=== PATIENT | male | born 1955 ===

== ENCOUNTER 2017-12-24 09:38 | Day surgery (SDC) | payer OTHER ==
[2014-07-27 08:43] VITALS: BMI 28.6
[2017-12-24 10:17] VITALS: TEMP 97.9
[2017-12-24] MEDS ORDERED: Midazolam 2 MG/2 ML VIAL ONE (12:33)
[2017-12-24] MEDS ORDERED: Propofol 10 mg/ml Inj (20 ML) ONE (12:33)
[2017-12-24] MEDS ORDERED: Rocuronium 10 mg/ml (5 ml) ONE (12:35)
[2017-12-24] MEDS ORDERED: Lidocaine/Epinephrine 1% 1:100000 10 ML IJ ONE (12:48)
[2017-12-24] MEDS ORDERED: Vancomycin 1 gm/D5W 200 ml 1 GM/200 ML BAG IVPB ONE (12:48)
[2017-12-24] MEDS: Bupivacaine 0.25% 20 ML INJ IJ ONE ×2 (13:36→13:53)
[2017-12-24] MEDS ORDERED: Neostigmine Methylsulfate 3mg/3ml Syringe IV ONE (15:25)
[2017-12-24] MEDS ORDERED: HYDROmorphone 0.5 mg/0.5 ml ISec IVP PRN (15:58)
[2017-12-24] MEDS ORDERED: Oxycodone/Acetaminophen 5/325 mg Tab PO PRN (16:00)
--- NOTE | 2017-12-24 16:03 | PCM.SURG1 ---
Surgeon's Initial Post Op Note - Surgeon's Notes Surgeon: Dr. Victor Value Stream Leader: Keisha Foote Type of Anesthesia: General Endo, Block Regional, Local Pre-Operative Diagnosis: b/l inguinal hernia Operative Findings: large inguinal hernia defect bilateral Post-Operative Diagnosis: Same Operation Performed: robotic bilateral inguinal hernia repair with mesh Specimen/Specimens Removed: fat tissues Estimated Blood Loss: EBL {In ML}: 20 Blood Products Given: N/A Drains Used: No Drains Post-Op Condition: Good Date of Surgery/Procedure: 12/24/17 Time of Surgery/Procedure: 16:03
[2017-12-25 00:45] VITALS: BP 132/62; PULSE 68; RESP 16; O2SAT 97
--- NOTE | 2017-12-25 02:14 | OP ---
PROCEDURE DATE: 12/24/2017 PREOPERATIVE DIAGNOSES: 1. Left inguinal hernia, possible bilateral inguinal hernia. 2. Morbid obesity. PROCEDURE DONE: 1. Robotic left inguinal hernia repair with the mesh. 2. Robotic right inguinal hernia repair with the mesh. 3. Laparoscopic bilateral transversus abdominis plane block placement. SURGEON: The procedure was done by Tony beck MD BISQUE KILN DRAWER: JENNIFER Langley TYPE OF ANESTHESIA: General endotracheal tube anesthesia. ESTIMATED BLOOD LOSS: Around 10 mL. DRAINS: None. PATHOLOGY: None. INTRAOPERATIVE FINDINGS: The patient had a large left direct inguinal hernia containing large amount of preperitoneal fat and on second finding, the right direct inguinal hernia containing preperitoneal fat, and there was no indirect hernia, and there was no lipoma on the spermatic cord. DESCRIPTION OF PROCEDURE: On intraoperative steps, this is a 62-year-old male who was diagnosed with large hernia on the left inguinal area, and the patient was consented for robotic left inguinal hernia repair with the mesh, possible bilateral, brought to the OR, placed supine on operating table. After induction of anesthesia, the abdomen was prepped and draped in usual sterile fashion. The Sanchez catheter was placed and supraumbilical incision was made after incising the skin, subcutaneous tissue, and the fascia. The robotic camera port was placed. Pneumo was created. Another 3-8 mm port was placed in the upper abdomen. Robot was brought in. Camera arm as well as arm one and arm two were docked, and the peritoneum was incised from the left ASIS up to the right ASIS, and the patient had a large left inguinal hernia as well as small right direct inguinal hernia, and after dissecting the peritoneum, the dissection was carried down in the midline up to the space of Retzius laterally to the lateral abdominal wall, first on the right side and the dissection was carried down to reduce the hernial sac back into the peritoneal cavity with the large lipoma of the sac and inferior dissection was done up to the pelvic brim. Now, another similar dissection was done on the left side and peritoneum was from the lateral abdominal wall structure as well as the vas deferens and spermatic cord vessels, and the large hernial sac was reduced back into peritoneal cavity and inferior dissection was done up to the pelvic brim. After proper inferior dissection bilaterally, right and left anatomical mesh was placed and both mesh were implanted. After proper implantation of the mesh, the peritoneum was sutured with 0 Vicryl interrupted sutures and 3-0 PDS continuous suture, and after that, the procedure was converted to laparoscopy after removing all instrument and robot; and the laparoscopic bilateral TAP block was given. The 30:30 mL of Marcaine was injected bilaterally into the transversus abdominis muscle plane block, and after that, all the ports were taken out under vision. Pneumo was deflated. Umbilical port site was closed in two layers, the fascia with 0 Vicryl interrupted sutures, skin with 4-0 Monocryl and dry sterile dressing was applied. The patient tolerated procedure well. Count of instrument and gauze was correct. There was no apparent complication. The patient was extubated in OR, sent to the postanesthesia care unit in stable condition. Tony Victor MD
== END 2017-12-24 18:12 | disposition home or self-care (01) ==
LOC: C.SDS 09:38
PROVIDERS: ATTEND Surgery Surgical Critical Care
DX: K40.20 Bilateral inguinal hernia, without obstruction or gangrene, not specified as recurrent (principal); E66.01 Morbid (severe) obesity due to excess calories
CPT/HCPCS: 49650; J1170; J2250; J2405; J2704; J2710; J3010; J3370